=== PATIENT | male | born 1960 | race Caucasian/White ===

== ENCOUNTER 2021-10-28 01:42 | Outpatient (CLI) | payer MEDICARE, MEDICAID, SELFPAY ==
[2021-10-28 11:34] LABS: Abs Immature Grans 0.02 10^3/uL (0.0-0.06); Absolute Basophil Count 0.03 10^3/uL (0.0-0.2); Absolute Eosinophil Count 0.08 10^3/uL (0.0-0.7); Absolute Lymphocyte Count 0.74 10^3/uL (1.2-3.4); Absolute Neutrophil Count 4.67 10^3/uL (1.2-6.7); Basophils % 0.5; Eosinophils % 1.3; HCT 40.3 % (40.0-50.0); HGB 12.8 g/dL (13.5-17.5); Immature Grans % 0.3; Lymphocytes % 11.9; MCH 27.6 pg (27.0-33.0); MCHC 31.8 % (32.0-36.0); MCV 87 fL (80-95); MPV 8.9 fL (8.0-11.0); Monocytes % 11.2; Neutrophils % 74.8; Platelet Count 291 10^3/uL (130-400); RBC 4.64 10^6/uL (4.36-5.78); RDW 16.2 % (11.8-14.1); RDW-SD 51.8 fL; WBC 6.24 10^3/uL (4.4-10.8)
[2021-10-28 12:27] LABS: ALT 30 U/L (16-63); AST 24 U/L (15-37); Albumin 4.1 g/dL (3.4-5.0); Alkaline Phosphatase 100 U/L (46-116); Anion Gap 10.1 mmol/L (3-11); BUN 17 mg/dL (7-18); Bilirubin, Total 0.3 mg/dL (0.2-1.0); CO2 25.9 mmol/L (21.0-32.0); CREATININE 1.3 mg/dL (0.70-1.30); Calcium 9.2 mg/dL (8.5-10.1); Chloride 100 mmol/L (98-107); GGT 119 U/L (15-85); Glucose 72 mg/dL (74-106); Potassium 4.5 mmol/L (3.5-5.1); Sodium 136 mmol/L (136-145); Total Protein 7.1 g/dL (6.4-8.2)
[2021-10-29 12:52] LABS: HIV-1/2 Ag & Ab Screen Negative (Negative)
[2021-10-31 10:41] LABS: HBs Antibody, Quant <3.1 mIU/mL (See Note); Hepatitis B Surface Ab Negative (See Note)
[2021-10-31 10:53] LABS: Hepatitis B Surface Ag Negative (Negative)
[2021-10-31 12:03] LABS: Hep B Core Antibody Negative (Negative)
[2021-10-31 12:13] LABS: Hep A Total Ab w Rflx IgM Negative (Negative)
[2021-11-17 11:08] LABS: Misc Referral (UVM) See Comments
== END 2021-10-28 01:43 | disposition home or self-care (01) ==
LOC: LBO 01:43
PROVIDERS: Visit Provider Nurse Practitioner Gerontology
DX: F10.20 Alcohol dependence, uncomplicated (principal); Z11.4 Encounter for screening for human immunodeficiency virus [HIV]; Z11.59 Encounter for screening for other viral diseases; Z79.899 Other long term (current) drug therapy; Z72.89 Other problems related to lifestyle
CPT/HCPCS: 80053; 86704; 86706; 86709; 86803; 87340; 87389; 82977; 85025